=== PATIENT | male | born 1995 | race Caucasian/White ===

== ENCOUNTER 2017-10-02 21:37 | Emergency (ER) | payer BC ==
[~2017-10-02] VITALS: Ht 154.9 cm; Wt 89.5 kg
[2017-10-02 21:43] VITALS: TEMP 98.5
[2017-10-02] MEDS ORDERED: ZYRTEC 10MG10 MG PO (21:45)
[2017-10-02] MEDS ORDERED: PRIL40 PO (21:46)
[2017-10-03 01:01] VITALS: BP 134/79; PULSE 55
== END 2017-10-03 00:58 | disposition home or self-care (01) ==
LOC: COL.ER 21:37
DX: R55 Syncope and collapse (principal)

== ENCOUNTER 2017-11-06 19:59 | Emergency (ER) | payer BC ==
[~2017-11-06] VITALS: Ht 180.3 cm; Wt 88.6 kg
[~2017-11-06 19:59] MED LIST: PRIL40 PO; ZYRTEC 10MG10 MG PO
[2017-11-06 20:04] VITALS: BP 143/80; TEMP 98.4
[2017-11-06 22:31] VITALS: PULSE 70
== END 2017-11-06 21:37 | disposition home or self-care (01) ==
LOC: COL.ER 19:59
DX: S61.216A Laceration without foreign body of right little finger without damage to nail, initial encounter (principal); Y92.009 Unspecified place in unspecified non-institutional (private) residence as the place of occurrence of the external cause; W26.0XXA Contact with knife, initial encounter

== ENCOUNTER → 2017-11-18 | Emergency (ER) | payer BC ==
[2017-11-18 16:53] VITALS: BP 138/67; PULSE 63; TEMP 97.8
== END ==
LOC: COL.ER 16:44
DX: S61.216D Laceration without foreign body of right little finger without damage to nail, subsequent encounter (principal); X58.XXXD Exposure to other specified factors, subsequent encounter

== ENCOUNTER → 2019-01-14 | Outpatient (CLI) | payer BC | LOC: COL.RAD 12:49 | DX: N50.819 Testicular pain, unspecified (principal) ==